=== PATIENT | male | born 1985 | race Caucasian/White ===

== ENCOUNTER 2022-09-17 08:15 | Emergency (ER) | payer BC, OTHER | END 2022-09-17 09:48 | disposition home or self-care (01) | LOC: JD.ED 08:15 | DX: S29.9XXA Unspecified injury of thorax, initial encounter (principal); W00.0XXA Fall on same level due to ice and snow, initial encounter; Y93.01 Activity, walking, marching and hiking | CPT/HCPCS: 71101-26-LT; 71101-LT; 99284 ==